=== PATIENT | female | born 1940 | race Caucasian/White ===

== ENCOUNTER 2021-11-15 07:21 | Day surgery (SDC) | payer OTHER ==
[~2021-11-15] VITALS: Ht 152.4 cm; Wt 68.2 kg
[~2021-11-15 07:21] MED LIST: ASCO500 PO; Adult Low Dose81 MG PO; CALCIUM 600 +1 EAC9 PO; Celebrex200 MG PO; Citrucel500 MG PO; FAMO20 PO; GLUCOSAMIN-CHO1 EACH PO; Mobic15 MG PO; PYRI100 PO; TIROSINT50 MCG PO; Tylenol325 MG
[2021-11-15] MEDS ORDERED: METO25ER PO (07:55)
--- NOTE | 2021-11-15 08:24 | NUR ---
11/15/21 0824 Sofy Sylvester NERVE BLOCK COMPLETED FOR LEFT CARPAL TUNNEL, DR. STILL AND DR. RODAS AT BEDSIDE. PT MONITORED THROUGHOUT PROCEDURE. PT TOLERATED WELL.
== END 2021-11-15 09:23 | disposition home or self-care (01) ==
LOC: ORSCSDS 07:21
PROVIDERS: Orthopaedic Surgery
PROC: 01N54ZZ Release Median Nerve, Percutaneous Endoscopic Approach (ICD-10-PCS; principal; 2021-11-15 08:30)
DX: G56.02 Carpal tunnel syndrome, left upper limb (principal); E03.9 Hypothyroidism, unspecified; I10 Essential (primary) hypertension; Z79.899 Other long term (current) drug therapy
CPT/HCPCS: J2250; J2704; J3010

== ENCOUNTER 2025-03-31 08:38 | Day surgery (SDC) | payer MEDICARE ==
[2025-03-31] VITALS (13 sets, daily range): BP systolic 94–175; BP diastolic 14–106
[~2025-03-31] VITALS: Ht 152.4 cm; Wt 64.4 kg
[~2025-03-31 08:38] MED LIST changes: +ESCITALOPRAM OXA5 MG PO; +LATANOPROST2.5 M3 BOTHEYES; +METO25 PO; +METO25ER PO; +PERSERVISION AREDS; +TYLENOL PM; -Tylenol325 MG; +Tylenol325 MG PO
[2025-03-31] MEDS ORDERED: NS 1,000 ML IV ONE ×2 (09:47→10:01)
[2025-03-31] MEDS ORDERED: Heparin Sodium 1000 Units/ML 10ML MDV ONE ×2 (10:01→10:59)
[2025-03-31] MEDS ORDERED: CeFAZolin Sodium 1000 mg Vial ONE (10:01)
[2025-03-31] MEDS ORDERED: Bupivacaine 0.5% HCl 5 MG/ML 30MLVIAL ONE (10:01)
[2025-03-31] MEDS ORDERED: Vancomycin HCl 1000 MG ADDvantage ONE ×2 (10:20→10:21)
[2025-03-31] MEDS ORDERED: NS 250 ML IV ONE (10:21)
[2025-03-31] MEDS ORDERED: NS 500 ML IV ONE (10:22)
[2025-03-31] MEDS ORDERED: Midazolam HCl 1MG / ML 2ML Vial ONE (10:43)
[2025-03-31] MEDS ORDERED: FentaNYL Citrate 50 MCG/ML 2 ML Injection ONE (10:43)
--- NOTE | 2025-03-31 12:37 | NUR ---
PT IN RECOVERY ROOM IN RECLINER WITH [id number] IN ROOM. LACW SITE SOFT WITH NO HEMATOMA, NO BLEEDING AND WELL APPROXIMATED INCISION. PT EATING BANANA, AND YOGURT AND DRINKING FLUID. LEFT SHOULDER IMMOBILIZER IN PLACE AND ICE BAG OVER LACW SITE. CALL LIGHT IN REACH.
[2025-03-31] MEDS ORDERED: ELIQUIS5 M2 PO (12:49)
--- NOTE | 2025-03-31 13:43 | NUR ---
NO CHANGES TO LACW SITE. DR MONTES DE OCA STATED HE REVIEWED 2V XRAY - OK TO DISCHARGE PER PLAN.
--- NOTE | 2025-03-31 14:40 | NUR ---
NO CHANGES TO LACW SITE.
--- NOTE | 2025-03-31 14:49 | NUR ---
Care assumed of patient. Patient awake and alert, denies complaints. Arm immobilizer in place. Pacemaker site intact without swelling or bleeding. Ice pack in place. VSS
--- NOTE | 2025-03-31 15:27 | NUR ---
VERBAL AND WRITTEN DISCHARGE INFORMATION GIVEN TO BOTH PATIENT AND PATIENT'S DAUGHTER WITH CLEAR UNDERSTANDING. PATIENT DISCHARGED HOME IN STABLE CONDITION AT 1510, PT ESCORTED OUT VIA WHEELCHAIR AND CARE TURNED OVER TO DAUGHTER.
== END 2025-03-31 15:37 | disposition home or self-care (01) ==
LOC: MHTC 08:38
DX: I48.91 Unspecified atrial fibrillation (principal); I49.5 Sick sinus syndrome; I10 Essential (primary) hypertension; Z79.899 Other long term (current) drug therapy; Z79.890 Hormone replacement therapy; Z88.1 Allergy status to other antibiotic agents; Z88.8 Allergy status to other drugs, medicaments and biological substances
CPT/HCPCS: 33208; 71046; 93005; 93010; 99152; 99153; C1785; C1898; J0461; J0690; J1644; J2250; J3010; J3373; J7030; J7040; J7050; Q9967